=== PATIENT | female | born 1935 | race Caucasian/White ===

== ENCOUNTER 2018-11-24 19:55 | Inpatient (IN) | payer OTHER ==
[~2018-11-24] VITALS: Ht 157.5 cm; Wt 54.9 kg
[2018-11-24 20:00] VITALS: Ht 157.5 cm; Wt 54.9 kg
[2018-11-24 20:47] LABS: BASOPHIL % 0.6 % (0-2); PLATELET COUNT 186 x10^3mcL (130-400); RED CELL DISTRIBUTION WIDTH 13.1 % (11.5-14.5)
[2018-11-24 20:58] LABS: CALCIUM 8.7 mg/dL (8.5-10.1); CARBON DIOXIDE 25.3 mmol/L (21-32); CHLORIDE SERUM 101 mmol/L (98-107); CREATININE SERUM 1.2 mg/dL (0.6-1.0); GLUCOSE SERUM 295 mg/dL (74-106); POTASSIUM SERUM 3.4 mmol/L (3.5-5.1); SODIUM SERUM 135 mmol/L (136-145)
[2018-11-24 21:03] LABS: ALBUMIN 3.1 g/dL (3.4-5.0); ALKALINE PHOSPHATASE 99 U/L (46-116); ALT/SGPT 16 U/L (14-59); AST/SGOT 16 U/L (15-37); BILIRUBIN TOTAL 0.6 mg/dL (0.20-1.00); LIPASE 166 IU/L (73-393); TOTAL PROTEIN, SERUM 6.7 g/dL (6.4-8.2)
[2018-11-24 22:46] LABS: microscopic required? YES; urine erythrocyte 1+ (NEGATIVE)
[2018-11-24 23:35] LABS: MAGNESIUM 1.8 mg/dL (1.8-2.4); PHOSPHOROUS 3.4 mg/dL (2.5-4.9)
[2018-11-24 23:41] LABS: CHOLESTEROL/HDL RATIO 4.4
[2018-11-25] VITALS (10 sets, daily range): BP systolic 143–173; BP diastolic 74–96
[2018-11-25 06:16] LABS: BASOPHIL % 0.7 % (0-2); PLATELET COUNT 172 x10^3mcL (130-400); RED CELL DISTRIBUTION WIDTH 13.3 % (11.5-14.5)
[2018-11-25 06:49] LABS: CALCIUM 8.7 mg/dL (8.5-10.1); CARBON DIOXIDE 25.1 mmol/L (21-32); CHLORIDE SERUM 105 mmol/L (98-107); CREATININE SERUM 1.2 mg/dL (0.6-1.0); GLUCOSE SERUM 250 mg/dL (74-106); PHOSPHOROUS 3.7 mg/dL (2.5-4.9); POTASSIUM SERUM 3.5 mmol/L (3.5-5.1); SODIUM SERUM 136 mmol/L (136-145)
[2018-11-25 13:27] LABS: AMPHETAMINE QUAL UR NONE DETECTED (See below)
[2018-11-26 06:41] LABS: CALCIUM 8.6 mg/dL (8.5-10.1); CARBON DIOXIDE 27.3 mmol/L (21-32); CHLORIDE SERUM 105 mmol/L (98-107); CREATININE SERUM 1.2 mg/dL (0.6-1.0); GLUCOSE SERUM 220 mg/dL (74-106); MAGNESIUM 1.9 mg/dL (1.8-2.4); PHOSPHOROUS 4.4 mg/dL (2.5-4.9); POTASSIUM SERUM 3.8 mmol/L (3.5-5.1); SODIUM SERUM 143 mmol/L (136-145)
[2018-11-26 07:13] LABS: BASOPHIL % 0.5 % (0-2); PLATELET COUNT 181 x10^3mcL (130-400); RED CELL DISTRIBUTION WIDTH 13.5 % (11.5-14.5)
[2018-11-26 10:11] VITALS: BP 145/64
[2018-11-26 13:43] VITALS: BP 157/86
[2018-11-26 17:31] VITALS: BP 153/86
[2018-11-26 19:39] VITALS: BP 143/68
[2018-11-27] VITALS (7 sets, daily range): BP systolic 108–186; BP diastolic 60–87
[2018-11-27 06:39] LABS: CALCIUM 8.6 mg/dL (8.5-10.1); CARBON DIOXIDE 27.2 mmol/L (21-32); CHLORIDE SERUM 103 mmol/L (98-107); CREATININE SERUM 1.3 mg/dL (0.6-1.0); GLUCOSE SERUM 195 mg/dL (74-106); POTASSIUM SERUM 3.6 mmol/L (3.5-5.1); SODIUM SERUM 140 mmol/L (136-145)
[2018-11-27 06:48] LABS: BASOPHIL % 0.9 % (0-2); PLATELET COUNT 174 x10^3mcL (130-400); RED CELL DISTRIBUTION WIDTH 13.4 % (11.5-14.5)
[2018-11-28 05:31] VITALS: BP 150/87
[2018-11-28 08:40] VITALS: BP 166/91
[2018-11-28] MEDS ORDERED: LEVAQUIN500 M1 PO (09:11)
[2018-11-28] MEDS ORDERED: LIPI10 PO (09:12)
[2018-11-28] MEDS ORDERED: HYDROCHLOROTH12.5 M2 PO (09:13)
[2018-11-28] MEDS ORDERED: NOR5 PO (10:15)
[2018-11-28] MEDS ORDERED: COZ25 PO (10:15)
[2018-11-28 11:59] VITALS: BP 178/100
[2018-11-28 15:07] VITALS: BP 169/91
[2018-11-28 18:45] VITALS: BP 163/91
[2018-11-28 19:15] VITALS: BP 163/91
== END 2018-11-28 20:30 | disposition home or self-care (01) | DRG 291 ==
LOC: ED 19:55 → DU 23:01 → MU 23:01 → DU 11-25 00:30
PROVIDERS: Emergency Medicine; Family Medicine; ADMIT Internal Medicine
DX: I11.0 Hypertensive heart disease with heart failure (principal); J18.9 Pneumonia, unspecified organism; N17.0 Acute kidney failure with tubular necrosis; J96.01 Acute respiratory failure with hypoxia; Z68.1 Body mass index [BMI] 19.9 or less, adult; E87.1 Hypo-osmolality and hyponatremia; E44.1 Mild protein-calorie malnutrition; J91.8 Pleural effusion in other conditions classified elsewhere; E87.6 Hypokalemia; I50.41 Acute combined systolic (congestive) and diastolic (congestive) heart failure; E11.65 Type 2 diabetes mellitus with hyperglycemia; M81.0 Age-related osteoporosis without current pathological fracture; E78.5 Hyperlipidemia, unspecified
CPT/HCPCS: 82962; 83880; 87804; 94150; 97110-GP; 97112-GP; 97116-GP; 97530-GP; J0456; J0696; J1940; J7030; J7050; J7620; Q0092

== ENCOUNTER 2019-02-13 11:22 | Inpatient (IN) | payer OTHER ==
[~2019-02-13] VITALS: Ht 160 cm; Wt 45.0 kg
[~2019-02-13 11:22] MED LIST: COZ25 PO; HYDROCHLOROTH12.5 M2 PO; LEVAQUIN500 M1 PO; LIPI10 PO; NOR5 PO
[2019-02-13 11:33] VITALS: Ht 160 cm; Wt 45.0 kg
[2019-02-13 12:09] LABS: BASOPHIL % 0.5 % (0-2); PLATELET COUNT 174 x10^3mcL (130-400); RED CELL DISTRIBUTION WIDTH 14.3 % (11.5-14.5)
[2019-02-13 12:46] LABS: CALCIUM 8.9 mg/dL (8.5-10.1); CARBON DIOXIDE 26.6 mmol/L (21-32); CHLORIDE SERUM 106 mmol/L (98-107); CREATININE SERUM 1.1 mg/dL (0.6-1.0); GLUCOSE SERUM 194 mg/dL (74-106); POTASSIUM SERUM 4.1 mmol/L (3.5-5.1); SODIUM SERUM 140 mmol/L (136-145)
[2019-02-13 12:56] LABS: ALBUMIN 3.6 g/dL (3.4-5.0); ALKALINE PHOSPHATASE 78 U/L (46-116); ALT/SGPT 28 U/L (14-59); AST/SGOT 31 U/L (15-37); TOTAL PROTEIN, SERUM 7.2 g/dL (6.4-8.2)
[2019-02-13 12:59] LABS: UA SPECIFIC GRAVITY >=1.030 (1.005-1.035); microscopic required? YES; urine erythrocyte TRACE (NEGATIVE)
[2019-02-13 15:54] LABS: MAGNESIUM 2.1 mg/dL (1.8-2.4); PHOSPHOROUS 4.1 mg/dL (2.5-4.9)
[2019-02-13 15:56] LABS: CHOLESTEROL/HDL RATIO 2.5
[2019-02-13 16:00] LABS: T3 TOTAL 1.03 ng/mL
[2019-02-13 16:04] LABS: FREE T4 0.94 ng/dL (0.76-1.46); FREE THYROXINE INDEX 2.9 ug/dL (1.4-4.5); T4(THYROXINE) 8.6 ug/dL (4.7-13.3)
[2019-02-13 16:12] VITALS: BP 176/102
[2019-02-13 16:21] LABS: AMPHETAMINE QUAL UR NONE DETECTED (See below)
[2019-02-13 19:20] VITALS: BP 162/91
[2019-02-13 23:00] VITALS: BP 162/91
[2019-02-14 06:06] VITALS: BP 170/83
[2019-02-14 06:27] LABS: BASOPHIL % 0.8 % (0-2); PLATELET COUNT 163 x10^3mcL (130-400); RED CELL DISTRIBUTION WIDTH 14.5 % (11.5-14.5)
[2019-02-14 07:17] LABS: CALCIUM 8.4 mg/dL (8.5-10.1); CARBON DIOXIDE 28.1 mmol/L (21-32); CHLORIDE SERUM 106 mmol/L (98-107); CREATININE SERUM 1.1 mg/dL (0.6-1.0); GLUCOSE SERUM 134 mg/dL (74-106); MAGNESIUM 1.9 mg/dL (1.8-2.4); PHOSPHOROUS 4.4 mg/dL (2.5-4.9); POTASSIUM SERUM 3.8 mmol/L (3.5-5.1); SODIUM SERUM 143 mmol/L (136-145)
[2019-02-14 09:13] VITALS: BP 160/92
[2019-02-14 12:58] VITALS: BP 143/70
[2019-02-14 16:24] VITALS: BP 159/85
[2019-02-14 19:15] VITALS: BP 155/75
[2019-02-14 20:55] VITALS: BP 155/75
[2019-02-15 05:33] VITALS: BP 178/98
[2019-02-15 06:30] VITALS: BP 160/85
[2019-02-15 06:49] LABS: BASOPHIL % 0.8 % (0-2); CALCIUM 8.7 mg/dL (8.5-10.1); CARBON DIOXIDE 30.1 mmol/L (21-32); CHLORIDE SERUM 104 mmol/L (98-107); CREATININE SERUM 1.1 mg/dL (0.6-1.0); GLUCOSE SERUM 147 mg/dL (74-106); MAGNESIUM 2.2 mg/dL (1.8-2.4); PLATELET COUNT 171 x10^3mcL (130-400); POTASSIUM SERUM 3.8 mmol/L (3.5-5.1); SODIUM SERUM 142 mmol/L (136-145)
[2019-02-15 10:00] VITALS: BP 157/75
[2019-02-15] MEDS ORDERED: BENICAR HCT1 TAB PO (10:31)
[2019-02-15] MEDS ORDERED: NOR10 PO (10:31)
[2019-02-15] MEDS ORDERED: COREG12.5 MG PO (10:31)
[2019-02-15] MEDS ORDERED: LEVAQUIN750 MG PO (10:32)
[2019-02-15] MEDS ORDERED: LASIX40 MG PO (10:32)
[2019-02-15 11:00] VITALS: BP 153/70
[2019-02-15 11:53] VITALS: BP 153/70
== END 2019-02-15 13:20 | disposition home or self-care (01) | DRG 291 ==
LOC: ED 11:22 → DU 14:59
PROVIDERS: Emergency Medicine; ADMIT Family Medicine
DX: I50.41 Acute combined systolic (congestive) and diastolic (congestive) heart failure (principal); N17.0 Acute kidney failure with tubular necrosis; J90 Pleural effusion, not elsewhere classified; K21.9 Gastro-esophageal reflux disease without esophagitis; E11.65 Type 2 diabetes mellitus with hyperglycemia; I11.0 Hypertensive heart disease with heart failure; E78.5 Hyperlipidemia, unspecified; I34.0 Nonrheumatic mitral (valve) insufficiency; R80.9 Proteinuria, unspecified; E78.00 Pure hypercholesterolemia, unspecified; I27.20 Pulmonary hypertension, unspecified; Z68.21 Body mass index [BMI] 21.0-21.9, adult; I25.10 Atherosclerotic heart disease of native coronary artery without angina pectoris; Z79.84 Long term (current) use of oral hypoglycemic drugs
CPT/HCPCS: 36600; 82962; 83880; 84439; J1815; J1940; J2185; J7050; J7620; Q0092

== ENCOUNTER 2019-06-24 15:23 | Inpatient (IN) | payer OTHER ==
[~2019-06-24] VITALS: Ht 152.4 cm; Wt 56.5 kg
[~2019-06-24 15:23] MED LIST changes: +BENICAR HCT1 TAB PO; +COREG12.5 MG PO; +LASIX40 MG PO; +LEVAQUIN750 MG PO; +NOR10 PO
--- NOTE | 2019-06-24 15:26 | NUR ---
EKG IN PROGRESS.
[2019-06-24 15:28] VITALS: Ht 152.4 cm; Wt 56.5 kg
[2019-06-24 15:46] LABS: BASOPHIL % 0.5 % (0-2); PLATELET COUNT 216 x10^3mcL (130-400); RED CELL DISTRIBUTION WIDTH 12.9 % (11.5-14.5)
--- NOTE | 2019-06-24 16:01 | NUR ---
DR FRY AT BEDSIDE FOR MSE
[2019-06-24 16:02] LABS: CALCIUM 9.3 mg/dL (8.5-10.1); CARBON DIOXIDE 21.2 mmol/L (21-32); CHLORIDE SERUM 96 mmol/L (98-107); CREATININE SERUM 1.4 mg/dL (0.6-1.0); GLUCOSE SERUM 438 mg/dL (74-106); SODIUM SERUM 133 mmol/L (136-145)
[2019-06-24 16:07] LABS: ALBUMIN 3.8 g/dL (3.4-5.0); ALKALINE PHOSPHATASE 128 U/L (46-116); ALT/SGPT 20 U/L (14-59); AST/SGOT 16 U/L (15-37); BILIRUBIN TOTAL 0.4 mg/dL (0.20-1.00); TOTAL PROTEIN, SERUM 7.6 g/dL (6.4-8.2)
--- NOTE | 2019-06-24 17:00 | NUR ---
REPORT GIVEN TO YESSI BURNHAM IN TELE FLOOR BY TANYA BURNHAM
[2019-06-24 17:17] LABS: MAGNESIUM 1.9 mg/dL (1.8-2.4); PHOSPHOROUS 3.8 mg/dL (2.5-4.9)
[2019-06-24] MEDS ORDERED: LOSARTAN POTASS25 M1 PO (17:20)
[2019-06-24] MEDS ORDERED: NOR5 PO (17:21)
--- NOTE | 2019-06-24 17:31 | NUR ---
PT TRANSPORTED TO TELE FLOOR VIA GURNEY ON PORTABLE CM SINUS NO DISTRESS. IV SITE SALINE LOCK PATENT. YESSI BURNHAM RESUMING CARE OF PT
[2019-06-24 17:44] VITALS: BP 174/80
--- NOTE | 2019-06-24 17:54 | NUR ---
RECEIVED FROM ER, TRANSPORTED VIA GUERNEY. AWAKE AND ALERT, ORIENTED TO NAME, PLACE, TIME AND SITUATION. SPEECH CLEAR AND APPROPRIATE. AMBULATED WITH STEADY GAIT. BREATHING EVEN AND UNLABORED ON ROOM AIR. SALINE LOCK TO RIGHT AC. STATED SOUGHT ADMISSION DUE TO EPISODE OF SHARP PAIN TO STERNUM. DENIES HAVING CHEST PAIN OR CHEST DISCOMFORT AT THIS TIME. SINUS RHYTHM ON TELE #12. ORIENTED TO ROOM ENVIRONMENT, INSTRUCTED ON USE OF CALL LIGHT TO CALL FOR ASSISTANCE. PLACED WITHIN EASY REACH. ENDORSED TO NURSE RICARDO
--- NOTE | 2019-06-24 18:22 | NUR ---
DR Fili GREWAL IN TO SPEAK WITH PATIENT. NOTIFIED DR Fili GREWAL OF INSULIN COVERAGE NEEDED DUE TO BS IN ED OF 438. WILL AWAIT ORDERS AND WILL ALSO ENDORSE TO ONCOMING NURSE. REINSTRUCTED PATIENT ON BED CONTROLS AND CALL LIGHT, EXPLAINED TO PATIENT TO CALL FOR STAFF FOR ASSISTANCE.
--- NOTE | 2019-06-24 19:50 | NUR ---
RECEIVED REPORT FROM AM NURSE. PT LAYING DOWN IN BED. PT AAOX4, ABLE TO MAKE NEEDS KNOWN. ON TELE# 12 READING SR. DENIES CP/PRESSURE AT THIS TIME. NO H/A OR DIZZINESS. NO ACUTE DISTRES NOTED. PALPABLE PULSES TO ALL EXTREMETIES. NO EDEMA NOTED. ABD SOFT AND NONDISTEDED. ACTIVE BS X4 QUAD. DENIES N/V/D. LAST BM 06/24/19. VOIDS FREELY BRP. AMBULATORY, SMALL BRUISES TO BUE NOTED. IV SL TO RAC FLUSHING WELL. SITE FREE FROM REDNESS AND SWELLING. KAREN AT LOWEST SETTING. SIDE RAILS X2 UP. CALL LIGHT WITHING REACH. WILL CONTINUE TO MONITOR.
[2019-06-24 20:46] VITALS: BP 152/74
--- NOTE | 2019-06-25 00:18 | NUR ---
PT AWAKE LAYING DOWN IN BED WITH HOB ELEVATED. BREATHING EVEN AND UNLABORED ON RA. NO ACUTE DISTRES NOTED. STATES FEELING COLD. WARM BLANKET PROVIDED. DENIES ANY PAIN. BED AT LOWEST SETTING. SIDE RAILS X2 UP. CALL LIGHT WITHING REACH. WILL CONTINUE TO MONITOR.
--- NOTE | 2019-06-25 05:29 | NUR ---
PT SLEPT AT INTERVALS THROGHOUT THE NIGHT. BREATHING EVEN AND UNLABORED ON RA. NO ACUTE DISTRESS NOTED. NO SIGNIFICANT CHANGE DURING SHIFT. ALL NEEDS ASSESSED AND ATTENDED TO. NO C/O CP/PRESSURE ALL LIGHT. BED AT LOWEST SETTING. SIDE RAILS X2 UP. CALL LIGHT WITHING REACH. WILL ENDORSE CARE TO AM NURSE.
[2019-06-25 05:34] VITALS: BP 136/60
[2019-06-25 06:12] LABS: BASOPHIL % 0.4 % (0-2); PLATELET COUNT 198 x10^3mcL (130-400)
[2019-06-25 06:27] LABS: CARBON DIOXIDE 24.3 mmol/L (21-32); CHLORIDE SERUM 107 mmol/L (98-107); CREATININE SERUM 1.2 mg/dL (0.6-1.0); GLUCOSE SERUM 200 mg/dL (74-106); PHOSPHOROUS 4.3 mg/dL (2.5-4.9); POTASSIUM SERUM 3.9 mmol/L (3.5-5.1); SODIUM SERUM 142 mmol/L (136-145)
--- NOTE | 2019-06-25 07:30 | NUR ---
PATIENT RESTING IN BED, NO ACUTE DISTRESS NOTED. PATIENT DENIES ANY CHEST PAIN. DENIES HEADACHE AND DIZZINESS. PATIENT STATES "I HAVE BEEN DOING GOOD AFTER THEY GAVE ME MEDICATIONS IN THE ER." TELE MONITOR IN PLACE. NO EDEMA NOTED. IV TO RAC SALINE LOCK, NO S/S OF INFILTRATION. CALL LIGHT WITHIN REACH, BED IN LOW POSITION, WILL CONTINUE TO MONITOR FOR CHANGES.
[2019-06-25 09:20] VITALS: BP 156/68
--- NOTE | 2019-06-25 10:58 | NUR ---
PATIENT STATED SHE HAD CHEST PAIN AN HOUR AFTER EATING BUT NOW STATES HER PAIN IS GONE. PATIENT STATED SHE HAD SOME PRESSURE THAT LASTED A FEW SECONDS. ASSESED PATIENT VITAL SIGNS BP: 131/66 HR:58. EDUCATED PATIENT TO REPORT ANY CHEST PAIN, HEADACHE, NUMBNESS,OR TINGLING. DR PHAM MADE AWARE. WILL CONTINUE TO MONITOR PATIENT.
[2019-06-25 12:53] VITALS: BP 154/72
--- NOTE | 2019-06-25 13:00 | NUR ---
PATIENT RESTING IN BED, NO ACUTE DISTRESS NOTED. PATIENT DENIES PAIN. ALL NEED MET. CALL LIGHT WITHIN REACH, BED IN LOW POSITION. WILL CONTINUE TO MONITOR
[2019-06-25 15:02] LABS: microscopic required? YES; urine erythrocyte NEGATIVE (NEGATIVE)
--- NOTE | 2019-06-25 17:00 | NUR ---
PATIENT WAS C/O HEADACHE 01/17, MEDICATED PATIENT WITH TYLENOL PER PROTOCOL (SEE EMAR). WILL CONTINUE TO MONITOR. CALL LIGHT WITHIN REACH, BED IN LOW POSITION.
[2019-06-25 17:41] VITALS: BP 137/62
--- NOTE | 2019-06-25 18:47 | NUR ---
PATIENT RESTING IN BED, WATCHING TV. DENIES PAIN AT THIS TIME. TELE MONITOR IN PLACE. PATIENT DENIES SOB, ON ROOM AIR. IV TO RAC SALINE LOCK, NO S/S OF INFILTRATION. CALL LIGHT WITHIN REACH, BED IN LOW POSITION, WILL ENDORSE REPORT TO NIGHT RN.
--- NOTE | 2019-06-25 19:00 | NUR ---
RECEIVED PT FROM DAY SHIFT RN. PT IS ALERT AND ORIENTED TO PERSON PLACE TIME AND SITUTAION AND IS ABLE TO FOLLOW COMMANDS. PT DENIES CHEST PAIN AND SHORTNESS OF BREATH ON ROOM AIR. PT IS AMBULATROY WITH ASSIST AND DENIES WEAKNESS OR DIZZINESS WHEN WALKING. ISNTRUCTED PT TO ASK FOR ASSISTANCE WHEN AMBULATING WHEN EXPERIENCING DIZZINESS OR SHORTNESS OF BREATH. BRUISES NOTED TO THE BILETERAL UPPER EXTREMITIES. PT DENIES ANY PAIN AT THIS TIMW. PT IS ON TELEMETRY MONITORING #12. THERE IS A RAC IV THAT CLEAN DRY AND INTACT AT THIS TIME. SAFETY MEASURES ARE IN PLACE. BED IS IN THE LOWEST POSITION. CALL LIGHT IS WITHIN REACH. WILL CONTINUE TO MONITOR PT.
[2019-06-25 21:15] VITALS: BP 136/62
--- NOTE | 2019-06-26 05:23 | NUR ---
PT SLEPT THROUGHOUT THE NIGHT. AMBULATED INDEPENDENTLY AND DENIES ANY CHEST PAIN OR SHORTNESS OF BREATH. NO ACUTE DISTRESS NOTED. NO SIGNIFICANT CHANGES NOTED.
[2019-06-26 06:17] VITALS: BP 148/60
[2019-06-26 07:08] LABS: BASOPHIL % 0.5 % (0-2); PLATELET COUNT 182 x10^3mcL (130-400); RED CELL DISTRIBUTION WIDTH 13.1 % (11.5-14.5)
[2019-06-26 07:12] LABS: CALCIUM 8.8 mg/dL (8.5-10.1); CHLORIDE SERUM 107 mmol/L (98-107); CREATININE SERUM 1.3 mg/dL (0.6-1.0); GLUCOSE SERUM 242 mg/dL (74-106); PHOSPHOROUS 4.1 mg/dL (2.5-4.9); POTASSIUM SERUM 3.9 mmol/L (3.5-5.1); SODIUM SERUM 141 mmol/L (136-145)
--- NOTE | 2019-06-26 07:30 | NUR ---
PATIENT RESTING IN BED, NO ACUTE DISTRESS NOTED. PATIENT DENIES CHEST PIAN. TELE MONITOR IN PLACE. DENIES HEADACHE AND DIZZINES. PATIENT DENIES SOB, ON ROOM AIR. PATIENT IS AMBULATORY WITH NO ASSIST. IV TO RAC, SALINE LOCK, NO S/S OF INFILTRATION. CALL LIGHT WITHIN REACH, BED IN LOW POSITION, WILL CONTINUE TO MONITOR.
[2019-06-26 09:29] VITALS: BP 155/70
--- NOTE | 2019-06-26 11:40 | NUR ---
PATIENT AMBULATING TO THE BATHRROM, NO ACUTE DISTRESS NOTED. PATIENT DENIES PAIN AT THIS TIME. WILL CONTINUE TO MONITOR PATIENT.
[2019-06-26 12:36] VITALS: BP 144/65
[2019-06-26 13:38] VITALS: BP 144/65
--- NOTE | 2019-06-26 14:10 | NUR ---
PATIENT WAS DISCHARGE HOME TODAY. NO ACUTE CHANGES NOTED THROUGH OUT SHIFT, PATEINT IS STABLE. PATIENT DENIES PAIN. PATIENT RECEIVED COPY OF DISCHARGE INSTRUCTION, PATIENT UNDERSTANDS AND AGREES WITH PLAN OF CARE, INCLUDING MEDICATIONS & FOLLOW UP WITH PCP. ALL QUESTIONS AND CONCERNS ADDRESSED. TELE MONITOR & ARMBANDS REMOVED. IV TO RAC REMOVED, CATH INTACT. PATIENT TAKEN DOWN VIA WHEEL CHAIR BY PMO ANALYST. PATIENT TOOK HOME ALL PERSONAL BELONGINGS.
== END 2019-06-26 14:07 | disposition home or self-care (01) | DRG 311 ==
LOC: ED 15:23 → DU 16:19
PROVIDERS: ADMIT Internal Medicine
DX: I20.9 Angina pectoris, unspecified (principal); N17.0 Acute kidney failure with tubular necrosis; E86.0 Dehydration; I11.9 Hypertensive heart disease without heart failure; I25.10 Atherosclerotic heart disease of native coronary artery without angina pectoris; I34.0 Nonrheumatic mitral (valve) insufficiency; I27.29 Other secondary pulmonary hypertension; E11.65 Type 2 diabetes mellitus with hyperglycemia; E78.5 Hyperlipidemia, unspecified; Z68.24 Body mass index [BMI] 24.0-24.9, adult; Z79.84 Long term (current) use of oral hypoglycemic drugs
CPT/HCPCS: 82962; G0378; Q0092

== ENCOUNTER 2020-02-08 12:22 | Inpatient (IN) | payer OTHER ==
[~2020-02-08] VITALS: Ht 160 cm; Wt 63.5 kg
[~2020-02-08 12:22] MED LIST changes: +LOSARTAN POTASS25 M1 PO
[2020-02-08 12:38] VITALS: Ht 160 cm; Wt 63.5 kg
[2020-02-08 13:09] LABS: BASOPHIL % 0.3 % (0-2); PLATELET COUNT 188 x10^3mcL (130-400); RED CELL DISTRIBUTION WIDTH 12.4 % (11.5-14.5)
[2020-02-08 13:43] LABS: ALBUMIN 3.4 g/dL (3.4-5.0); ALKALINE PHOSPHATASE 121 U/L (46-116); ALT/SGPT 20 U/L (14-59); AST/SGOT 18 U/L (15-37); BILIRUBIN TOTAL 0.8 mg/dL (0.20-1.00); CALCIUM 9.2 mg/dL (8.5-10.1); CARBON DIOXIDE 23.9 mmol/L (21-32); CHLORIDE SERUM 95 mmol/L (98-107); CREATININE SERUM 1.5 mg/dL (0.6-1.0); HDL CHOLESTEROL 41 mg/dL (40-60); POTASSIUM SERUM 3.9 mmol/L (3.5-5.1); SODIUM SERUM 133 mmol/L (136-145); TOTAL PROTEIN, SERUM 7.3 g/dL (6.4-8.2)
[2020-02-08 13:45] LABS: CHOLESTEROL 121 mg/dL (<200)
[2020-02-08 13:47] LABS: GLUCOSE SERUM 509 mg/dL (74-106)
[2020-02-08 16:57] LABS: FREE T4 1.31 ng/dL (0.76-1.46); FREE THYROXINE INDEX 2.4 ug/dL (1.4-4.5); T4(THYROXINE) 7.2 ug/dL (4.7-13.3)
[2020-02-08 16:59] LABS: T3 TOTAL 0.85 ng/mL
[2020-02-08 17:48] VITALS: BP 142/61
[2020-02-08 18:17] LABS: urine erythrocyte NEGATIVE (NEGATIVE)
[2020-02-08 18:18] LABS: microscopic required? YES
[2020-02-08 18:27] LABS: AMPHETAMINE QUAL UR NONE DETECTED (See below)
[2020-02-08 20:00] VITALS: BP 120/60
[2020-02-09 06:48] LABS: BASOPHIL % 0.3 % (0-2); PLATELET COUNT 189 x10^3mcL (130-400); RED CELL DISTRIBUTION WIDTH 12.5 % (11.5-14.5)
[2020-02-09 06:49] LABS: CALCIUM 8.6 mg/dL (8.5-10.1); CARBON DIOXIDE 25.6 mmol/L (21-32); CHLORIDE SERUM 101 mmol/L (98-107); CREATININE SERUM 1.7 mg/dL (0.6-1.0); GLUCOSE SERUM 331 mg/dL (74-106); PHOSPHOROUS 4.1 mg/dL (2.5-4.9); POTASSIUM SERUM 4.1 mmol/L (3.5-5.1); SODIUM SERUM 138 mmol/L (136-145)
[2020-02-09 08:42] VITALS: BP 90/52
[2020-02-09 12:55] VITALS: BP 126/52
[2020-02-09 17:42] VITALS: BP 109/49
[2020-02-09 20:45] VITALS: BP 106/45
[2020-02-10 05:15] VITALS: BP 106/64
[2020-02-10 06:21] LABS: BASOPHIL % 0.4 % (0-2); PLATELET COUNT 168 x10^3mcL (130-400); RED CELL DISTRIBUTION WIDTH 12.7 % (11.5-14.5)
[2020-02-10 07:52] LABS: CALCIUM 8.3 mg/dL (8.5-10.1); CARBON DIOXIDE 25.4 mmol/L (21-32); CHLORIDE SERUM 108 mmol/L (98-107); CREATININE SERUM 1.3 mg/dL (0.6-1.0); GLUCOSE SERUM 95 mg/dL (74-106); MAGNESIUM 1.8 mg/dL (1.8-2.4); PHOSPHOROUS 3.3 mg/dL (2.5-4.9); POTASSIUM SERUM 3.4 mmol/L (3.5-5.1); SODIUM SERUM 142 mmol/L (136-145)
[2020-02-10 08:40] VITALS: BP 135/79
[2020-02-10 12:25] VITALS: BP 106/48
[2020-02-10 16:59] VITALS: BP 124/52
[2020-02-10 21:53] VITALS: BP 131/47
[2020-02-11 05:04] VITALS: BP 135/57
[2020-02-11 07:41] LABS: CALCIUM 8.8 mg/dL (8.5-10.1); CARBON DIOXIDE 24.7 mmol/L (21-32); CHLORIDE SERUM 107 mmol/L (98-107); GLUCOSE SERUM 75 mg/dL (74-106); POTASSIUM SERUM 3.7 mmol/L (3.5-5.1); SODIUM SERUM 142 mmol/L (136-145)
[2020-02-11 07:57] VITALS: BP 128/51
[2020-02-11 08:27] LABS: BASOPHIL % 0.1 % (0-2); PLATELET COUNT 186 x10^3mcL (130-400); RED CELL DISTRIBUTION WIDTH 12.4 % (11.5-14.5)
[2020-02-11] MEDS ORDERED: COREG12.5 MG PO (10:24)
[2020-02-11] MEDS ORDERED: LIPI10 PO (10:24)
[2020-02-11 10:44] VITALS: BP 128/51
== END 2020-02-11 11:38 | disposition home health service (06) | DRG 637 ==
LOC: ED 12:22 → DU 15:39 → MU 02-10 15:20
PROVIDERS: Emergency Medicine; ADMIT Internal Medicine
DX: E11.00 Type 2 diabetes mellitus with hyperosmolarity without nonketotic hyperglycemic-hyperosmolar coma (NKHHC) (principal); N17.0 Acute kidney failure with tubular necrosis; I50.42 Chronic combined systolic (congestive) and diastolic (congestive) heart failure; E87.1 Hypo-osmolality and hyponatremia; I11.0 Hypertensive heart disease with heart failure; E86.0 Dehydration; I95.1 Orthostatic hypotension; I34.0 Nonrheumatic mitral (valve) insufficiency; I27.20 Pulmonary hypertension, unspecified; E87.8 Other disorders of electrolyte and fluid balance, not elsewhere classified; R19.7 Diarrhea, unspecified; D63.8 Anemia in other chronic diseases classified elsewhere; E78.5 Hyperlipidemia, unspecified; M81.0 Age-related osteoporosis without current pathological fracture; I25.2 Old myocardial infarction; Z79.84 Long term (current) use of oral hypoglycemic drugs; Z68.24 Body mass index [BMI] 24.0-24.9, adult; Z82.49 Family history of ischemic heart disease and other diseases of the circulatory system; Z88.7 Allergy status to serum and vaccine
CPT/HCPCS: 82962; 83880; 84439; 87046; 87046-59; 97116-GP; 97530-GP; G0378; J1815; J7030; Q0092